=== PATIENT | female | born 1995 | race Caucasian/White ===

== ENCOUNTER 2018-08-18 07:51 | Day surgery (SDC) | payer OTHER ==
[2018-08-18] MEDS ORDERED: Decadron 4 MG INJ IV ONE (07:52)
[2018-08-18] MEDS ORDERED: Versed 2 MG/2 ML Injection IV ONE (07:52)
[2018-08-18] MEDS ORDERED: DIPRIVAN 200 MG/20 ML IV ONE (07:52)
[2018-08-18] MEDS ORDERED: Zofran 4 MG/2 ML VIAL IV ONE (07:52)
[2018-08-18] MEDS ORDERED: SUBLIMAZE 250 MCG/5 ML IV ONE (07:52)
[2018-08-18] MEDS ORDERED: BRIDION 200MG/2ML IV ONE (07:52)
[2018-08-18] MEDS ORDERED: TORAdol 30 mg Injection IV ONE (07:52)
[2018-08-18] MEDS ORDERED: Zemuron 100 MG/10 ML IV ONE (07:52)
[2018-08-18] MEDS ORDERED: Lactated Ringers 1,000 ML IV SCH (08:00)
[2018-08-18] MEDS ORDERED: MEFOXIN 2 GM PREMIX** 2 GM/50 ML ML IV ONE (08:01)
[2018-08-18] MEDS ORDERED: Sensorcaine 0.25% 10 ML ONE (08:08)
--- NOTE | 2018-08-18 09:35 | HP ---
DATE OF SURGERY: 08/18/2018 HISTORY OF PRESENT ILLNESS: The patient is a 23 year-old endoscopic ultrasound with thick walled gallbladder consistent with some cholecystitis. She thought she had some food allergies in the past but all the tests were negative. Ultrasound reported cholecystitis, symptomatic biliary colic. She also had some endoscopic ultrasound reportedly. PAST MEDICAL HISTORY: She denies any chronic illnesses. PAST SURGICAL HISTORY: None. MEDICATIONS: None. ALLERGIES: NKDA. FAMILY HISTORY: Diabetes, chronic obstructive pulmonary disease. SOCIAL HISTORY: One pack per day smoker. Reports occasional alcohol use denies alcohol abuse. REVIEW OF SYSTEMS: Twelve systems reviewed. No chest pain or palpitations other systems negative or noncontributory as above and per preadmission questionnaire. PHYSICAL EXAMINATION: GENERAL: No acute distress. HEENT: Sclerae nonicteric. NECK: No JVD. CHEST: Equal excursion, nonlabored breathing. CVS: Regular rate and rhythm. ABDOMEN: Soft. No peritoneal signs. EXTREMITIES: No significant edema. NEURO: Alert, oriented, moving extremities symmetrically. No gross motor deficits noted. IMPRESSION: Chronic cholecystitis and sludge on endoscopic ultrasound. I feel the patient will benefit from cholecystectomy. Risks and benefits explained in detail, shown the gallbladder pamphlet, risk sheet, explained the procedure in detail including but not limited to bleeding or infection, risk of trocar injury or hernia, small risk of bowel, bladder or blood vessel injury, small risk of bile leak, bile duct injury, retained stone or sludge possibly requiring further procedure either open or ERCP, general risk of anesthesia, deep venous thrombosis, pulmonary embolism, pneumonia, perioperative risk of aches, pains, bloating, constipation and/or loose stools possibly chronic in nature, possibility procedure may not improve her symptoms. She may need further work up and/or testing, other studies or procedures. She understands and agrees to the planned procedure, will proceed with laparoscopic cholecystectomy with possible open as an outpatient.
[2018-08-18] MEDS ORDERED: MORPHINE SULFATE 10 MG/ML ONE (11:32)
[2018-08-18] MEDS ORDERED: SUBLIMAZE 100 MCG/2 ML ONE (11:51)
[2018-08-18 12:48] VITALS: BP 137/71; PULSE 60; O2SAT 93
--- NOTE | 2018-08-19 08:45 | OP ---
SURGERY DATE/TIME: 08/18/2018 1044 PREOPERATIVE DIAGNOSIS: Chronic cholecystitis. POSTOPERATIVE DIAGNOSIS: Chronic cholecystitis. PROCEDURE: Laparoscopic cholecystectomy. SURGEON: Dr. Chris Cabezas. ANESTHESIA: General. ESTIMATED BLOOD LOSS: Minimal. INDICATIONS: As noted above. Risks and benefits explained in detail but not limited to and consent obtained. DESCRIPTION OF PROCEDURE AND FINDINGS: The patient was taken to the OR. General anesthesia induced. Abdomen prepped and draped in the usual sterile fashion. After official time out and no disagreement with planned procedure, a transverse incision made at the supraumbilical area. Fascia grasped and pulled upward. Veress needle inserted and tested with saline. Pneumoperitoneum accomplished insufflating opening pressure of 0-15. An 11 mm bladeless port and camera inserted without difficulty followed by two - 5 mm right upper quadrant ports and 5 mm epigastric port. There was no evidence of any intra-abdominal injury secondary to trocar insertion. The gallbladder was grasped. It had chronic inflammatory reaction. Dissected posterior, lateral to anterior fashion. Slowly and carefully cystic duct and infundibular junction slowly and carefully well skeletonized until critical view obtained both anteriorly and posteriorly. Once this was accomplished cystic duct clipped x3 and divided in the usual fashion. The main cystic artery directly along the gallbladder wall was isolated directly on the gallbladder wall. It was clipped x3 and divided in the usual fashion. The gallbladder slowly and carefully dissected free from its dense attachments to the liver bed. It was somewhat vascular requiring clipping additional oozing side branches of the cystic artery directly on the gallbladder wall as necessary. Just prior to releasing from final attachments to the anterior edge of the liver the liver bed re-inspected. Clips noted in place in cystic duct and cystic artery stumps. There is no sign of any active bleeding or bile leakage. I felt there is no benefit from drain placement. Gallbladder released from final attachments to the anterior edge of the liver pulled up and out the supraumbilical port site and passed off. The 1011 fascial defect closed with puncture closure device under direct vision with the camera with #1 Vicryl. Copious amount of irrigation accomplished lateral to liver irrigating until clear. Pneumoperitoneum decompressed. The wound was irrigated out. Skin incision closed with 4-0 Vicryl. Steri-Strips and sterile dressing applied. 0.25% Marcaine local injected along the skin incision fascial defect. The patient tolerated the procedure well. There were no immediate complications. Findings discussed with the family out in the waiting area.
== END 2018-08-18 13:10 | disposition home or self-care (01) ==
LOC: SDC 07:51
PROVIDERS: ATTEND Surgery
DX: K81.1 Chronic cholecystitis (principal)
CPT/HCPCS: 84703; J0694; J1100; J1885; J2250; J2270; J2405; J2704; J3010

== ENCOUNTER 2022-02-19 01:05 | Emergency (ER) | payer OTHER ==
[2022-02-19] MEDS ORDERED: TORAdol 30 mg Injection IM ONE (01:25)
[2022-02-19] MEDS ORDERED: TORAdol 30 mg Injection ONE (01:33)
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
[2022-02-19 02:19] VITALS: BP 121/69; PULSE 73; O2SAT 97
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
== END 2022-02-19 02:39 | disposition home or self-care (01) ==
LOC: ED 01:05
DX: S46.911A Strain of unspecified muscle, fascia and tendon at shoulder and upper arm level, right arm, initial encounter (principal); S40.022A Contusion of left upper arm, initial encounter; S40.021A Contusion of right upper arm, initial encounter; Y04.2XXA Assault by strike against or bumped into by another person, initial encounter; Z63.0 Problems in relationship with spouse or partner; T76.11XA Adult physical abuse, suspected, initial encounter; Y07.01 Husband, perpetrator of maltreatment and neglect; M25.511 Pain in right shoulder; Z72.0 Tobacco use
CPT/HCPCS: 73030; 96372; 99283; J1885

== ENCOUNTER 2022-04-20 10:34 | Day surgery (SDC) | payer OTHER ==
[2022-04-20] MEDS ORDERED: Lactated Ringers 1,000 ML IV ONE ×2 (10:41→10:53)
[2022-04-20] MEDS ORDERED: Sensorcaine 0.25% 10 ML ONE (10:41)
[2022-04-20] MEDS ORDERED: Lactated Ringers 1,000 ML IV SCH (11:00)
[2022-04-20] MEDS ORDERED: OFIRMEV 1,000 MG/100 ML ML IV ONE (11:00)
[2022-04-20] MEDS ORDERED: Versed 2 MG/2 ML Injection IV ONE (11:00)
[2022-04-20] MEDS ORDERED: DIPRIVAN 200 MG/20 ML IV ONE (11:06)
[2022-04-20] MEDS ORDERED: Decadron 4 MG INJ ONE ×2 (11:07→12:23)
[2022-04-20] MEDS ORDERED: TORAdol 30 mg Injection ONE (11:07)
[2022-04-20] MEDS ORDERED: Xylocaine-Mpf 2% 5 Ml Vial ONE ×2 (11:07→12:23)
[2022-04-20] MEDS ORDERED: Zemuron 100 MG/10 ML ONE (11:07)
[2022-04-20] MEDS ORDERED: BRIDION 200MG/2ML IV ONE (11:07)
[2022-04-20] MEDS ORDERED: Zofran 4 MG/2 ML VIAL ONE (11:07)
[2022-04-20] MEDS ORDERED: SUBLIMAZE 100 MCG/2 ML ONE ×2 (11:10→12:28)
[2022-04-20 11:16] LABS: Hematocrit 39.1 % (35-47); Hemoglobin 13.3 g/dL (12.0-16.0); Mean Platelet Volume 9.9 fL (7.5-11.0); Platelet Count 230 x10^3/uL (150-450); Red Blood Count 4.16 x10^6/uL (4.1-5.4); Red Cell Distribution Width 12.6 % (11.5-14.0); White Blood Count 8.1 x10^3/uL (4.0-10.5)
[2022-04-20 11:38] LABS: ALBUMIN 4.4 g/dL (3.5-5.0); ALKALINE PHOSPHATASE 57 U/L (38-126); ANION GAP 12.4 MEQ/L (5-15); BLOOD UREA NITROGEN 11 mg/dL (7-17); CHLORIDE 106 mmol/L (98-107); Calcium 9.3 mg/dL (8.4-10.2); Carbon Dioxide 21 mmol/L (22-30); Creatinine 1 0.53 mg/dL (0.52-1.04); EST GLOMERULAR FILTRATION RATE > 60.0 ML/MIN; Glucose 85 mg/dL (74-106); Potassium 3.9 mmol/L (3.5-5.1); SGOT/AST 21 U/L (14-36); SGPT/ALT 18 U/L (0-35); SODIUM 136 mmol/L (137-145); Total Protein 7.3 g/dL (6.3-8.2)
[2022-04-20] MEDS ORDERED: KEFZOL 1 GM ONE (11:47)
[2022-04-20 11:50] LABS: ABO TYPING A; RH TYPING NEGATIVE
[2022-04-20 11:51] LABS: Antibody Screen NEGATIVE (NEGATIVE)
[2022-04-20] MEDS ORDERED: Marcaine 0.5%/Epinephrine 10 ML ONE (12:23)
[2022-04-20 13:28] LABS: Appearance CLEAR (CLEAR); Bilirubin NEGATIVE (NEGATIVE); Glucose NEGATIVE (NEGATIVE); Ketones SMALL-15 (NEGATIVE)
[2022-04-20 13:29] LABS: Dipstick done @ ? MAIN LAB; Nitrite NEGATIVE (NEGATIVE); Ph 5.5 (5-6); Protein,Urine Dip NEGATIVE (Negative); RBC NEGATIVE Ery/ul (0-5); Urobilinogen 0.2 mg/dL (0-1)
[2022-04-20] MEDS ORDERED: Oxy-IR 5 MG PO ONE (14:03)
[2022-04-20 14:15] VITALS: O2SAT 98
[2022-04-20] MEDS ORDERED: Rhogam Plus 300 MCG IM ONE (14:30)
[2022-04-20 14:35] VITALS: BP 134/71; PULSE 64
[2022-04-20 15:01] LABS: Epithelial Cells RARE /HPF (FEW); WBC 0-2 /HPF (0-5)
--- NOTE | 2022-04-23 10:49 | OP ---
SURGERY DATE/TIME: 04/20/2022 1135 PREOPERATIVE DIAGNOSIS: Left-sided ectopic . POSTOPERATIVE DIAGNOSIS: Left-sided ectopic . PROCEDURE: Laparoscopic left salpingectomy removal of ectopic . SURGEON: Raheem Giang D.O. CABLEWAY OPERATOR: Day Owens and Steph Ching, surgical techs. ANESTHESIA: General. ESTIMATED BLOOD LOSS: Minimal. COMPLICATIONS: None. INDICATIONS: The risks and benefits, indications and alternatives of the procedure were reviewed with the patient prior to procedure. The patient understood the risk of infection, bleeding, bowel injury, bladder injury, ureteral injury, uterine perforation, pelvic infection, thromboembolic disorder, possible future ectopic associated with the surgery and desires to have this procedure as a possible means to alleviate her current medical condition. DESCRIPTION OF PROCEDURE AND FINDINGS: At this point she was taken to the operating room and given general sedation, placed in supine position, where she is prepped and draped in the usual sterile fashion. From this point a 5 mm incision was made in the umbilical fold and a 5 mm trocar and sleeve were advanced under direct visualization where pneumoperitoneum was obtained with 4 liters of CO2 gas. A survey of the patient's pelvis anatomy revealed her to have a left-sided ampullary ectopic approximately 4 x 3 cm in dimension which occupied the entire tube on her left side. From this point, additional incision was made 2 cm above the symphysis pubis where a 10 mm trocar was used and placed suprapubically. An additional incision is made on the left middle quadrant region where a 5 mm trocar and sleeve were advanced under direct visualization. From this point the left adnexa was lifted with a grasper and LigaSure was used to excise the left tube that occupied the entire portion. It was placed on the mesosalpinx on the left side just anterior to the ovary and a LigaSure was placed on mesosalpinx where it was clamped, coagulated, cut and taken down to the entire tube with removal of the ectopic . Hemostasis was obtained by placing the bipolar on the surface of the cut portion and the ectopic portion was removed by using the Endobag which was removed at the 10 mm trocar site incision. At this point extensive irrigation was made. The right fallopian tube and ovary appeared to be within normal limits. Left ovary appeared to be within normal limits. The remaining pelvis appeared to be within normal limits. Copious irrigation was made. At this point there was no bleeding that was noted at the completion of the procedure. From this point all instruments were removed from the patient's abdomen and the incisions were closed with 4-0 Monocryl suture. The patient was then taken out of anesthesia and the patient was then taken to the recovery room in stable condition. All instruments and laps were accounted for x2.
== END 2022-04-20 14:35 | disposition home or self-care (01) ==
LOC: SDC 10:34
PROVIDERS: ATTEND Obstetrics & Gynecology
DX: O00.102 Left tubal pregnancy without intrauterine pregnancy (principal)
CPT/HCPCS: 36415; 64488; 76937; 76942; 80053; 81001; 85027; 86850; 86900; 86901; 87086; J0690; J1100; J1885; J2250; J2405; J2704; J2790; J3010; A9270-GY

== ENCOUNTER 2023-05-22 07:10 | Inpatient (IN) | payer OTHER ==
[2023-05-22] MEDS ORDERED: OMNIPEN 2 GM*** 2 G in Sodium Chloride 100ML MINI-BAG PLUS 100 ML IV ONE (16:00)
[2023-05-22 16:03] LABS: BASOPHIL % 0.5 % (0.0-0.4); Basophil (Absolute #) 0.04 x10^3/uL (0-0.4); Eosinophil (Absolute #) 0.16 x10^3/uL (0-0.5); Hematocrit 37.4 % (35-47); Hemoglobin 12.8 g/dL (12.0-16.0); IMMATURE GRAN # 0.03 x10^3u/L (0.00-0.03); IMMATURE GRAN % 0.4 % (0.00-0.4); Lymphocyte (Absolute #) 1.47 x10^3/uL (1.0-4.6); Lymphocytes % 18.4 % (24.0-44.0); Mean Cell Volume 99.2 fL (78-100); Mean Corpuscular Hgb Concent. 34.2 g/dL (32-36); Mean Platelet Volume 10.9 fL (7.5-11.0); Monocyte (Absolute #) 0.47 x10^3/uL (0.0-1.3); Monocytes % 5.9 % (0.0-12.0); Neutrophil % 72.8 % (36.0-66.0); Platelet Count 236 x10^3/uL (150-450); Red Blood Count 3.77 x10^6/uL (4.1-5.4); Red Cell Distribution Width 13.3 % (11.5-14.0)
[2023-05-22] MEDS: CYTOTEC PO SCH ×4 (16:31→22:10)
[2023-05-22 17:19] LABS: ABO TYPING A
[2023-05-22 17:20] LABS: RH TYPING NEGATIVE
[2023-05-22 17:21] LABS: Antibody Screen POSITIVE (NEGATIVE)
[2023-05-22 18:57] LABS: Amphetamine,Urine NEGATIVE (NEGATIVE); Barbiturate,Urine NEGATIVE (NEGATIVE); Benzodiazepine,Urine NEGATIVE (NEGATIVE); Cocaine,Urine NEGATIVE (NEGATIVE); Methadone,Urine NEGATIVE (NEGATIVE); Opiate,Urine NEGATIVE (NEGATIVE); PCP,Urine NEGATIVE (NEGATIVE); THC,Urine NEGATIVE (NEGATIVE)
[2023-05-22] MEDS ORDERED: TYLENOL EXTRA STRENGTH 500 MG PO PRN (20:00)
[2023-05-22] MEDS: STADOL 2 MG IV PRN (22:16)
[2023-05-23] MEDS ORDERED: Zofran 4 MG/2 ML VIAL IV PRN
[2023-05-23] MEDS ORDERED: Nubain 10 MG/ML IV PRN
[2023-05-23] MEDS ORDERED: Lactated Ringers 1,000 ML IV ONE
[2023-05-23] MEDS ORDERED: FENTANYL 2 MCG-BUPIV 0.125%-NS 250 ML Epidur 250 ML EPIDURAL SCH
[2023-05-23] MEDS ORDERED: Lactated Ringers 1,000 ML IV SCH
[2023-05-23] MEDS: CYTOTEC PO SCH ×3 (00:08→04:07)
[2023-05-23] MEDS: STADOL 2 MG IV PRN (02:19)
[2023-05-23] MEDS: OMNIPEN 1 GM*** 1 GM in Sodium Chloride 100ML MINI-BAG PLUS 100 ML IV SCH ×3 (04:16→11:49)
[2023-05-23] MEDS ORDERED: OMNIPEN 2 GM*** 2 G in Sodium Chloride 100ML MINI-BAG PLUS 100 ML IV ONE (06:00)
[2023-05-23] MEDS ORDERED: OMNIPEN 1 GM*** 1 GM in Sodium Chloride 100ML MINI-BAG PLUS 100 ML IV SCH (06:00)
[2023-05-23] MEDS ORDERED: PITOCIN 30 UNITS/ LR 500 ML 30 UNITS/500 ML PLAST..BAG IV SCH (06:00)
[2023-05-23] MEDS ORDERED: MOTRIN 400 MG PO PRN (15:00)
[2023-05-23] MEDS ORDERED: Dermoplast Spray TP PRN (15:00)
[2023-05-23] MEDS ORDERED: Rhogam Plus 300 MCG IM ONE (15:00)
[2023-05-23] MEDS ORDERED: TUCKS TP PRN (15:00)
[2023-05-23] MEDS ORDERED: LANSINOH 40 GM TOP PRN (15:00)
[2023-05-24 04:47] LABS: Absolute Neutrophil Ct (ANC) 9.07 x10^3/uL (1.4-6.9); BASOPHIL % 0.5 % (0.0-0.4); Basophil (Absolute #) 0.07 x10^3/uL (0-0.4); Eosinophil % 2.1 % (0.00-5.0); Eosinophil (Absolute #) 0.27 x10^3/uL (0-0.5); Hematocrit 35.4 % (35-47); Hemoglobin 11.6 g/dL (12.0-16.0); IMMATURE GRAN # 0.06 x10^3u/L (0.00-0.03); IMMATURE GRAN % 0.5 % (0.00-0.4); Lymphocyte (Absolute #) 2.55 x10^3/uL (1.0-4.6); Lymphocytes % 19.8 % (24.0-44.0); Mean Cell Volume 100.3 fL (78-100); Mean Corpuscular Hemoglobin 32.9 pg (26-32); Mean Corpuscular Hgb Concent. 32.8 g/dL (32-36); Mean Platelet Volume 10.4 fL (7.5-11.0); Monocyte (Absolute #) 0.84 x10^3/uL (0.0-1.3); Monocytes % 6.5 % (0.0-12.0); Neutrophil % 70.6 % (36.0-66.0); Platelet Count 203 x10^3/uL (150-450); Red Blood Count 3.53 x10^6/uL (4.1-5.4); Red Cell Distribution Width 13.7 % (11.5-14.0); White Blood Count 12.9 x10^3/uL (4.0-10.5)
--- NOTE | 2023-05-24 07:45 | PCM.NOTE ---
Date and Time: 05/24/23 0744 Subjective Assessment: ppd 1 sp pt resting in bed and doing well able to ambulate and tolerate diet vss afebrile abd; soft uterus; firm lochia; mild hgb; 11 a/p sp ppd 1 dc home tomorrow fu office 3 wks OBJECTIVE DATA Vital Signs: Vital Signs - 24 hr Temp Pulse Resp BP BP Pulse Ox 05/24/23 05:00 97.8 F 82 18 125/66 97 05/24/23 01:00 84 18 128/84 99 05/23/23 21:00 98.1 F 88 17 132/59 99 05/23/23 17:00 98.2 F 93 H 20 136/72 98 05/23/23 15:30 97.8 F 90 20 136/70 97 05/23/23 15:00 98.8 F 84 20 117/67 96 05/23/23 14:30 97.8 F 82 20 125/73 98 05/23/23 14:00 97.8 F 81 20 134/70 95 05/23/23 13:45 98.8 F 72 20 128/64 95 05/23/23 13:30 97.8 F 77 20 125/67 97 05/23/23 13:15 97.8 F 83 20 129/73 97 05/23/23 13:00 97.8 F 92 H 20 120/59 97 05/23/23 12:45 97.8 F 05/23/23 12:30 97.8 F 76 20 127/61 97 05/23/23 12:15 97.8 F 76 20 127/61 95 05/23/23 12:00 97.8 F 78 20 147/63 147/63 97 05/23/23 11:45 97.8 F 80 20 178/81 97 05/23/23 11:30 97.8 F 65 20 146/83 95 05/23/23 11:15 97.5 F 65 20 139/82 97 05/23/23 11:14 97.5 F 68 20 137/77 97 05/23/23 11:00 97.5 F 65 20 146/78 97 05/23/23 10:45 97.5 F 65 20 145/78 97 05/23/23 10:30 97.5 F 68 20 137/77 97 05/23/23 10:15 97.5 F 68 20 137/85 97 05/23/23 10:00 97.5 F 72 20 133/81 97 05/23/23 09:45 97.5 F 68 20 132/84 97 05/23/23 09:30 97.5 F 67 20 131/77 97 05/23/23 09:15 97.5 F 68 20 134/76 97 05/23/23 09:00 97.5 F 68 20 134/76 97 05/23/23 08:45 97.5 F 69 20 137/73 100 05/23/23 08:30 97.5 F 69 20 137/73 100 05/23/23 08:15 97.5 F 72 20 148/83 100 05/23/23 08:00 97.5 F 72 20 148/83 148/83 100 Pain Assessment - Last Documented Pain Intensity [Anterior] 9 Pain Intensity 10 Pain Scale Used 0-10 Pain Scale Intake and Output: Intake & Output 05/21/23 05/22/23 05/23/23 05/24/23 11:59 11:59 11:59 11:59 Intake Total 1470 Output Total 400 800 Balance 1070 -800 Weight 111.13 kg Lab Results: Lab Results-Last 24 Hours 05/23/23 05/24/23 Range/Units Unknown 04:42 WBC 12.9 H (4.0-10.5) x10^3/uL RBC 3.53 L (4.1-5.4) x10^6/uL Hgb 11.6 L (12.0-16.0) g/dL Hct 35.4 (35-47) % MCV 100.3 H (78-100) fL MCH 32.9 H (26-32) pg MCHC 32.8 (32-36) g/dL RDW 13.7 (11.5-14.0) % Plt Count 203 (150-450) x10^3/uL MPV 10.4 (7.5-11.0) fL Gran % 70.6 H (36.0-66.0) % Immature Gran % (Auto) 0.5 H (0.00-0.4) % Nucleat RBC Rel Count 0.0 (0.00-0.1) % Eos # (Auto) 0.27 (0-0.5) x10^3/uL Immature Gran # (Auto) 0.06 H (0.00-0.03) x10^3u/L Absolute Lymphs (auto) 2.55 (1.0-4.6) x10^3/uL Absolute Monos (auto) 0.84 (0.0-1.3) x10^3/uL Absolute Nucleated RBC 0.00 (0.00-0.01) x10^3u/L Lymphocytes % 19.8 L (24.0-44.0) % Monocytes % 6.5 (0.0-12.0) % Eosinophils % 2.1 (0.00-5.0) % Basophils % 0.5 (0.0-0.4) % Absolute Granulocytes 9.07 H (1.4-6.9) x10^3/uL Basophils # 0.07 (0-0.4) x10^3/uL Screen SEE SEPARATE REPORT Assessment/Plan (1) Vaginal delivery Current Visit: Yes Status: Acute Code(s): O80 - ENCOUNTER FOR FULL-TERM UNCOMPLICATED DELIVERY
--- NOTE | 2023-05-24 07:48 | PCM.DS ---
Discharge Summary Date of Admission: 05/23/23 08:07 Admitting Physician: KIRAN LEUNG DO Consults: Consults on Case 05/23/23 17:07 Navigation ONCE Primary Care Provider: FREDERICK LINCOLN Allergies Allergies No Known Drug Allergies Allergy (Verified 04/20/22 10:39) Hospital Summary - Hospital Course Hospital Course: pt admitted on may 22 for induction at 39 wks gestation and was given oral cytoted with casey induction with subsequet pitocin on may 23 and delivered live baby girl via without complication. during period stable hgb at 11 was able to ambulate and tolerate diet and at this time stable for discharge on may 25. all questions answered to her satisfaction and was advised to fu in office in 3 wks for care. - Vitals & Intake/Output Vital Signs: Vital Signs Temperature 97.8 F 05/24/23 05:00 Pulse Rate 82 05/24/23 05:00 Respiratory Rate 18 05/24/23 05:00 Blood Pressure 125/66 05/24/23 05:00 O2 Sat by Pulse Oximetry 97 05/24/23 05:00 Intake & Output: Intake & Output 05/21/23 05/22/23 05/23/23 05/24/23 11:59 11:59 11:59 11:59 Intake Total 1470 Output Total 400 800 Balance 1070 -800 Weight 111.13 kg - Lab Result Diagrams: 05/24/23 04:42 Lab Results-Last 24 Hrs: Lab Results-Last 24 Hours 05/23/23 05/24/23 Range/Units Unknown 04:42 WBC 12.9 H (4.0-10.5) x10^3/uL RBC 3.53 L (4.1-5.4) x10^6/uL Hgb 11.6 L (12.0-16.0) g/dL Hct 35.4 (35-47) % MCV 100.3 H (78-100) fL MCH 32.9 H (26-32) pg MCHC 32.8 (32-36) g/dL RDW 13.7 (11.5-14.0) % Plt Count 203 (150-450) x10^3/uL MPV 10.4 (7.5-11.0) fL Gran % 70.6 H (36.0-66.0) % Immature Gran % (Auto) 0.5 H (0.00-0.4) % Nucleat RBC Rel Count 0.0 (0.00-0.1) % Eos # (Auto) 0.27 (0-0.5) x10^3/uL Immature Gran # (Auto) 0.06 H (0.00-0.03) x10^3u/L Absolute Lymphs (auto) 2.55 (1.0-4.6) x10^3/uL Absolute Monos (auto) 0.84 (0.0-1.3) x10^3/uL Absolute Nucleated RBC 0.00 (0.00-0.01) x10^3u/L Lymphocytes % 19.8 L (24.0-44.0) % Monocytes % 6.5 (0.0-12.0) % Eosinophils % 2.1 (0.00-5.0) % Basophils % 0.5 (0.0-0.4) % Absolute Granulocytes 9.07 H (1.4-6.9) x10^3/uL Basophils # 0.07 (0-0.4) x10^3/uL Screen SEE SEPARATE REPORT Final Diagnosis/Problem List - Final Discharge Diagnosis/Problem (1) Vaginal delivery Current Visit: Yes Status: Acute Code(s): O80 - ENCOUNTER FOR FULL-TERM UNCOMPLICATED DELIVERY - Discharge Disposition: Home, Self-Care Condition: Stable Prescriptions: No Action Pnv No.95/Ferrous Fum/Folic AC [ Caplet] 1 each PO DAILY Follow up with: FREDERICK LINCOLN [Primary Care Provider] - KIRAN LEUNG DO [ACTIVE STAFF] - 3 weeks
[2023-05-24] MEDS ORDERED: M-M-R II Vaccine With Diluent SQ ONE (10:20)
[2023-05-24] MEDS ORDERED: Adacel Vial IM ONE (10:20)
[2023-05-24] MEDS: Docusate Sodium 100 MG PO SCH ×2 (11:56→21:58)
[2023-05-24] MEDS: FERREX 150 PO SCH (11:56)
[2023-05-25 02:53] VITALS: TEMP 98; O2SAT 97
[2023-05-25 08:56] VITALS: BP 132/71; PULSE 79; RESP 18
[2023-05-25] MEDS: FERREX 150 PO SCH (08:58)
[2023-05-25] MEDS: Docusate Sodium 100 MG PO SCH (08:58)
== END 2023-05-25 15:30 | disposition home or self-care (01) | DRG 807 ==
LOC: OB 15:00 → MED SURG 15:00 → UNDOADMOB 15:00 → INTOOBSV 05-23 08:07 → OBSVTOIN 05-23 08:07
PROVIDERS: ADMIT Obstetrics & Gynecology; ATTEND Obstetrics & Gynecology
PROC: 10E0XZZ Delivery of Products of Conception, External Approach (ICD-10-PCS; principal; 2023-05-24)
DX: O69.81X0 Labor and delivery complicated by cord around neck, without compression, not applicable or unspecified (principal); Z37.0 Single live birth; O70.9 Perineal laceration during delivery, unspecified; Z3A.39 39 weeks gestation of pregnancy; Z20.828 Contact with and (suspected) exposure to other viral communicable diseases
CPT/HCPCS: 36415; 59409; 80307; 85025; 85461; 86850; 86870; 86900; 86901; 90715; G0378; G0379; J0290; J0595; J2590; J2790; A9270-GY